=== PATIENT | male | born 2005 | race Caucasian/White ===

== ENCOUNTER 2023-11-09 21:10 | Emergency (ER) | payer SELFPAY ==
[2023-11-09 21:13] VITALS: BP 148/82; PULSE 69; RESP 18; TEMP 98.5; BMI 26.6
[2023-11-09] MEDS ORDERED: ACETAMINOPHEN INJECTION 100 ML IVPB ONE (21:55)
[2023-11-09] MEDS: ACETAMINOPHEN 1000 MG/100 ML BAG IVPB ONE (22:00)
[2023-11-09] MEDS: LACTATED RINGERS SOLUTION 1000 ML INFUS.BAG IV ONE (22:00)
[2023-11-09 22:11] LABS: BASO % 0.3 % (0-2.0); EOS % 1.2 % (0-4.5); HEMATOCRIT 43.4 % (35.4-49); HEMOGLOBIN 15.2 GM/dL (11.7-16.9); LYMPH % 38.1 % (8-40); MCH 31.1 pg (25.7-33.7); NEUT % 52.4 % (42.8-82.8); PLATELET COUNT 214 10^3/uL (134-434); RBC 4.87 M/mm3 (4.00-5.60); RDW 12.8 % (11.9-15.9); WHITE BLOOD COUNT 7.5 K/mm3 (4.0-10.0)
[2023-11-09 22:12] LABS: PH,URINE 7.5 (5.0-8.0); URINE APPEARANCE CLEAR; URINE BILIRUBIN NEGATIVE (NEGATIVE); URINE COLOR YELLOW; URINE GLUCOSE (UA) NEGATIVE (NEGATIVE); URINE KETONE TRACE (NEGATIVE); URINE LEUK ESTERASE NEGATIVE (NEGATIVE); URINE NITRITE NEGATIVE (NEGATIVE); URINE PROTEIN NEGATIVE (NEGATIVE)
[2023-11-09 22:32] LABS: POTASSIUM 3.9 mmol/L (3.5-5.1)
[2023-11-09 22:34] LABS: ALBUMIN 4.2 g/dl (3.4-5.0); BLOOD UREA NITROGEN 17.7 mg/dL (7-18); CALCIUM 8.9 mg/dL (8.5-10.1); MAGNESIUM 2.3 mg/dL (1.8-2.4)
[2023-11-09 22:38] LABS: CREATININE 1.1 mg/dL (0.55-1.3)
[2023-11-09 22:39] LABS: BILIRUBIN,TOTAL 0.8 mg/dL (0.2-1); TOT PROT 7.8 g/dl (6.4-8.2)
== END 2023-11-09 23:38 | disposition home or self-care (01) ==
LOC: JER 21:10
PROC: 3E030NZ Introduction of Analgesics, Hypnotics, Sedatives into Peripheral Vein, Open Approach (ICD-10-PCS; principal; 2023-11-09)
DX: R10.32 Left lower quadrant pain (principal); R50.9 Fever, unspecified; R11.0 Nausea; R63.0 Anorexia
CPT/HCPCS: 36415; 80053; 81003; 83690; 83735; 85025; 87086; 99284-25; J0131